=== PATIENT | female | born 1990 | race Caucasian/White ===

== ENCOUNTER 2020-01-23 10:31 | Outpatient (RCR) | payer OTHER ==
[~2020-01-23] VITALS: Ht 160 cm; Wt 61.0 kg
[~2020-01-23 10:31] MED LIST: ACET325T38 PO; ACHD5005 PO; ARIP10TA2 PO; BUPR-168 GT; CLON0.5T3 PO; DCS100C PO; DOCU100C37 PO; DOXY1TAB3 PO; FLUO10CA29 PO; FLUO20CA42 PO; FRS325T PO; HYDR1TAB75 PO; IBP800T PO; IBUP-1780 PO; NAPR-243 PO; OXYC-465 PO; PREN-53 PO; PREN1TAB39 PO; PSEU120T16 PO; Throat Lozenges MT
[2020-01-23] MEDS ORDERED: LISI2.5T PO (11:33)
[2020-01-23] MEDS ORDERED: LISI1TAB29 PO (11:37)
[2020-01-23] MEDS ORDERED: EREN70AU2 SQ (11:37)
[2020-01-24] MEDS ORDERED: OXYC1TAB87 PO (12:55)
[2020-01-24] MEDS ORDERED: IBUP-1780 PO (12:55)
[2020-01-24] MEDS ORDERED: ONDA8TAB13 PO (12:55)
== END 2020-01-23 11:49 | disposition home or self-care (01) ==
LOC: PREOP 10:31
PROVIDERS: ATTEND Obstetrics & Gynecology
DX: Z01.818 Encounter for other preprocedural examination (principal)

== ENCOUNTER 2020-02-01 14:09 | Emergency (ER) | payer OTHER ==
[~2020-02-01] VITALS: Ht 167 cm; Wt 74.0 kg
[~2020-02-01 14:09] MED LIST changes: +EREN70AU2 SQ; +LISI1TAB29 PO; +LISI2.5T PO; +ONDA8TAB13 PO; +OXYC1TAB87 PO
[2020-02-01] MEDS ORDERED: NS IV 1000 ML 1,000 ML IV STA (14:14)
[2020-02-01] MEDS ORDERED: PROMETHAZINE INJ 25 MG/ML (PHENERGAN) AMP IVP STA (14:14)
[2020-02-01] MEDS ORDERED: KETOROLAC 30 MG/ML VIAL IVP STA (14:14)
--- NOTE | 2020-02-01 14:14 | ED Headache ---
General Source: patient History of Present Illness Date Seen by Provider: Feb 01, 2020 Time Seen by Provider: 14:14 Initial Comments 29-year-old female brought in with "altered mental status" patient has a history of seizures and migraines. Patient will look at you and shake her head yes or no important that she will not speak. Patient will shake her head that this is similar to her previous migraines. Patient was at her [employer] for a postop lap appendectomy. She drove here from [facility]. They report that she go t a headache in route when she got to the office states she didn't feel good one and vomited and is had altered mental status, decreased responsiveness since patient with limited history of present illness based on only shake her head yes or no and not verbalizing just. Allergies and Home Medications Allergies Coded Allergies: bupropion (Verified Allergy, Severe, RASH/ANAPHYLAXIS, 01/23/20) metoclopramide (Verified Allergy, Intermediate, BECAME VIOLENT, 01/23/20) Home Medications Erenumab-Aooe 140 Mg/1 Ml Auto.injct, 140 MG SQ MONTHLY, (Reported) Ibuprofen 800 Mg Tablet, 800 MG PO Q6H PRN for PAIN Prescribed by: ARELI ALDANA on 01/24/20 1255 Lisinopril/Hydrochlorothiazide 1 Each Tablet, 1 EACH PO DAILY, (Reported) Ondansetron 8 Mg Tab.rapdis, 8 MG PO Q6H Prescribed by: ARELI ALDANA on 01/24/20 1255 Oxycodone HCl/Acetaminophen 1 Each Tablet, 1 TAB PO Q4H Prescribed by: ARELI ALDANA on 01/24/20 1255 Patient Home Medication List Home Medication List Reviewed: Yes Review of Systems Review of Systems Constitutional: No chills, No fever; other (Limited review of systems since patient nonverbal) Gastrointestinal: abdominal pain Psychiatric/Neurological: Headache Past Umkjuwl-Nriryu-Mkldny Hx Patient Social History Type Used: Cigarettes, Electronic/Vapor Former Smoker, Quit: January 22, 2018 2nd Hand Smoke Exposure: Yes Recent Hopitalizations: No Immunizations Up To Date Tetanus Booster (TDap): Unknown Date of Influenza Vaccine: Jun 05, 2019 Seasonal Allergies Seasonal Allergies: Yes (TAKES SHOTS IN THE FALL) Past Medical History Surgeries: Yes (STENT FOR KIDNEY STONES X4, WISDOM TEETH, CYST FROM WRIST, BREAST IMPLANTS) Hysterectomy Respiratory: No Currently Using CPAP: No Currently Using BIPAP: No Cardiac: Yes Hypertension Neurological: Yes (2007-SEIZURE "FROM [facility]") Headaches /Migraines Reproductive Disorders: Yes (UTERINE PROLAPSE) Female Reproductive Disorders: Endometriosis, Ovarian Cyst Sexually Transmitted Disease: No HIV/AIDS: No Genitourinary: Yes Kidney Stones Gastrointestinal: No Musculoskeletal: Yes Arthritis, Fibromyalgia, Chronic Back Pain Endocrine: No (GESTATIONAL) HEENT: No Loss of Vision: Denies Hearing Impairment: Denies Cancer: No Psychosocial: No (HISTORY OF) Anxiety, Depression Integumentary: No Blood Disorders: No Adverse Reaction/Blood Tranf: No (N/A) Physical Exam Vital Signs Vital Signs - First Documented 02/01/20 14:15 Temp 36.3 Pulse 54 Resp 16 B/P (MAP) 150/85 (106) Pulse Ox 100 O2 Delivery Room Air Capillary Refill : Height, Weight, BMI Height: 5'3.00" Weight: 165lbs. oz. [id number]; 23.82 BMI Method:Stated General Appearance: other (confused/lethargic) HEENT: PERRL/EOMI Neck: supple Cardiovascular: normal peripheral pulses Respiratory: chest non-tender, lungs clear Gastrointestinal: non tender, soft Psychiatric: disoriented x 3, lethargic Progress/Results/Core Measures Results/Orders Lab Results Laboratory Tests Test 02/01/20 14:15 02/01/20 14:34 02/01/20 15:19 Range/Units White Blood Count 10.5 4.3-11.0 10^3/uL Red Blood Count 4.30 L 4.35-5.85 10^6/uL Hemoglobin 12.8 11.5-16.0 G/DL Hematocrit 39 35-52 % Mean Corpuscular Volume 90 80-99 FL Mean Corpuscular Hemoglobin 30 25-34 PG Mean Corpuscular Hemoglobin Concent 33 32-36 G/DL Red Cell Distribution Width 12.9 10.0-14.5 % Platelet Count 511 H 130-400 10^3/uL Mean Platelet Volume 8.9 7.4-10.4 FL Neutrophils (%) (Auto) 64 42-75 % Lymphocytes (%) (Auto) 24 12-44 % Monocytes (%) (Auto) 9 0-12 % Eosinophils (%) (Auto) 3 0-10 % Basophils (%) (Auto) 0 0-10 % Neutrophils # (Auto) 6.8 1.8-7.8 X 10^3 Lymphocytes # (Auto) 2.5 1.0-4.0 X 10^3 Monocytes # (Auto) 0.9 0.0-1.0 X 10^3 Eosinophils # (Auto) 0.3 0.0-0.3 10^3/uL Basophils # (Auto) 0.0 0.0-0.1 10^3/uL Sodium Level 139 135-145 MMOL/L Potassium Level 3.1 L 3.6-5.0 MMOL/L Chloride Level 105 98-107 MMOL/L Carbon Dioxide Level 20 L 21-32 MMOL/L Anion Gap 14 5-14 MMOL/L Blood Urea Nitrogen 11 7-18 MG/DL Creatinine 0.78 0.60-1.30 MG/DL Estimat Glomerular Filtration Rate > 60 BUN/Creatinine Ratio 14 Glucose Level 122 H 70-105 MG/DL Calcium Level 9.4 8.5-10.1 MG/DL Corrected Calcium 8.5-10.1 MG/DL Total Bilirubin 0.9 0.1-1.0 MG/DL Aspartate Amino Transf (AST/SGOT) 25 5-34 U/L Alanine Aminotransferase (ALT/SGPT) 38 0-55 U/L Alkaline Phosphatase 70 40-136 U/L C-Reactive Protein High Sensitivity 1.51 H 0.00-0.50 MG/DL Total Protein 7.9 6.4-8.2 GM/DL Albumin 4.7 H 3.2-4.5 GM/DL Lipase 33 8-78 U/L Lactic Acid Level 1.54 0.50-2.00 MMOL/L Urine Color YELLOW Urine Clarity CLEAR Urine pH 7.0 5-9 Urine Specific Caroline 1.015 L 1.016-1.022 Urine Protein NEGATIVE NEGATIVE Urine Glucose (UA) NEGATIVE NEGATIVE Urine Ketones NEGATIVE NEGATIVE Urine Nitrite NEGATIVE NEGATIVE Urine Bilirubin NEGATIVE NEGATIVE Urine Urobilinogen 0.2 < = 1.0 MG/DL Urine Leukocyte Esterase NEGATIVE NEGATIVE Urine RBC (Auto) NEGATIVE NEGATIVE Urine RBC RARE /HPF Urine WBC 0-2 /HPF Urine Squamous Epithelial Cells 2-5 /HPF Urine Crystals NONE /LPF Urine Bacteria TRACE /HPF Urine Casts NONE /LPF Urine Mucus NEGATIVE /LPF Urine Culture Indicated NO Urine Opiates Screen NEGATIVE NEGATIVE Urine Oxycodone Screen NEGATIVE NEGATIVE Urine Methadone Screen NEGATIVE NEGATIVE Urine Propoxyphene Screen NEGATIVE NEGATIVE Urine Barbiturates Screen NEGATIVE NEGATIVE Ur Tricyclic Antidepressants Screen NEGATIVE NEGATIVE Urine Phencyclidine Screen NEGATIVE NEGATIVE Urine Amphetamines Screen NEGATIVE NEGATIVE Urine Methamphetamines Screen NEGATIVE NEGATIVE Urine Benzodiazepines Screen NEGATIVE NEGATIVE Urine Cocaine Screen NEGATIVE NEGATIVE Urine Cannabinoids Screen NEGATIVE NEGATIVE My Orders Orders - SUAZO,PETER L DO Ketorolac Injection (Toradol Injection) (02/01/20 14:14) Promethazine Injection (Phenergan Injec (02/01/20 14:14) Dexamethasone Injection (Decadron Inject (02/01/20 14:15) Ns Iv 1000 Ml (Sodium Chloride 0.9%) (02/01/20 14:14) Ed Iv/Invasive Line Start (02/01/20 14:14) Diphenhydramine Injection (Benadryl Inje (02/01/20 14:15) Cbc With Automated Diff (02/01/20 14:17) Comprehensive Metabolic Panel (02/01/20 14:17) Hs C Reactive Protein (02/01/20 14:17) Drug Screen Stat (Urine) (02/01/20 14:17) Lactic Acid Analyzer (02/01/20 14:17) Lipase (02/01/20 14:17) Ua Culture If Indicated (02/01/20 14:17) Ct Head Wo-R/O Stroke (02/01/20 14:18) Medications Given in ED Current Medications Medications Dose Ordered Sig/Yogesh Route Start Time Stop Time Status Last Admin Dose Admin Dexamethasone Sodium Phosphate 10 mg ONCE ONCE IV 02/01/20 14:15 02/01/20 14:17 DC 02/01/20 14:36 10 MG Diphenhydramine HCl 25 mg ONCE ONCE IVP 02/01/20 14:15 02/01/20 14:18 DC 02/01/20 14:36 25 MG Vital Signs/I&O 02/01/20 02/01/20 02/01/20 14:15 15:48 15:48 Temp 36.3 Pulse 54 58 58 Resp 16 16 16 B/P (MAP) 150/85 (106) 138/87 138/87 (104) Pulse Ox 100 99 99 O2 Delivery Room Air Room Air Room Air Progress Progress Note : Time: 16:10 Progress Note Patient's symptoms significantly improved with treatment. Patient is now actively talking and ambulating without. She reports that she frequently has migraines that cause her to have and off and similar response. Patient is getting closer back to her baseline is ready to be discharged home. Diagnostic Imaging Diagonstic Imaging: CT Plain Films/CT/US/NM/MRI: head Comments [place], [place] NAME: [facility] REC#: [id number] PT STATUS: REG ER : 1990 PHYSICIAN: PETER SUAZO DO ADMIT DATE: 02/01/20/ER Draft Date of Exam:02/01/20 CT HEAD WO-R/O STROKE PROCEDURE: CT head wo r/o stroke. TECHNIQUE: Multiple contiguous axial images were obtained through the brain without the use of intravenous contrast. Auto Exposure Controls were utilized during the CT exam to meet ALARA standards for radiation dose reduction. INDICATION: Altered mental status with lethargy, history of migraines. Patient is one week post abdominal surgery. COMPARISON: No priors. There is no intracerebral hemorrhage. There is no hydrocephalus. No edema, mass, or mass effect. The basilar cisterns are patent and there is no sulcal effacement. There were no findings suggestive of an elevation of the intracranial pressures. No mass or mass effect. There are no abnormal extra-axial fluid collections. The mastoid air cells and middle ear cavities appeared clear. The orbits and paranasal sinuses as well as the calvarium are nonacute. IMPRESSION: No hemorrhage, edema, or other acute abnormalities. Unremarkable CT head. Departure Impression Primary Impression: Migraine Qualified Codes: G43.111 - Migraine with aura, intractable, with status migrainosus Disposition: 01 HOME, SELF-CARE Condition: Stable Departure-Patient Inst. Referrals: NO,LOCAL PHYSICIAN (PCP) Primary Care Physician Patient Instructions: Migraines (DC), Migraines in Adults Add. Discharge Instructions: Follow-up with your primary care provider and neurologist for further migraine management PETER SUAZO DO Feb 01, 2020 14:14
[2020-02-01] MEDS ORDERED: diphenhydrAMINE 50 MG/ML INJ (BENADRYL) IVP ONE (14:15)
[2020-02-01] MEDS ORDERED: DEXAMETHASONE 10 MG/ML (DECADRON) 1 ML VIAL IV ONE (14:15)
[2020-02-01 14:22] LABS: BASOPHILS % (AUTO) 0 % (0-10); EOSINOPHILS # (AUTO) 0.3 10^3/uL (0.0-0.3); EOSINOPHILS % (AUTO) 3 % (0-10); HEMATOCRIT 39 % (35-52); HEMOGLOBIN 12.8 G/DL (11.5-16.0); LYMPHOCYTES # (AUTO) 2.5 X 10^3 (1.0-4.0); LYMPHOCYTES % (AUTO) 24 % (12-44); MEAN CORPUSCULAR HEMOGLOBIN 30 PG (25-34); MEAN CORPUSCULAR HGB CONC 33 G/DL (32-36); MEAN CORPUSCULAR VOLUME 90 FL (80-99); MEAN PLATELET VOLUME 8.9 FL (7.4-10.4); MONOCYTES # (AUTO) 0.9 X 10^3 (0.0-1.0); MONOCYTES % (AUTO) 9 % (0-12); NEUTROPHILS # (AUTO) 6.8 X 10^3 (1.8-7.8); NEUTROPHILS % (AUTO) 64 % (42-75); PLATELET COUNT 511 10^3/uL (130-400); RED CELL DISTRIBUTION WIDTH 12.9 % (10.0-14.5); WHITE BLOOD COUNT 10.5 10^3/uL (4.3-11.0)
[2020-02-01 14:31] LABS: ALBUMIN 4.7 GM/DL (3.2-4.5); CHLORIDE 105 MMOL/L (98-107); POTASSIUM 3.1 MMOL/L (3.6-5.0); SODIUM 139 MMOL/L (135-145)
[2020-02-01 14:33] LABS: CALCIUM 9.4 MG/DL (8.5-10.1)
[2020-02-01 14:34] LABS: GLUCOSE 122 MG/DL (70-105); TOTAL PROTEIN 7.9 GM/DL (6.4-8.2)
[2020-02-01 14:35] LABS: CARBON DIOXIDE 20 MMOL/L (21-32)
[2020-02-01 14:36] LABS: BILIRUBIN,TOTAL 0.9 MG/DL (0.1-1.0)
[2020-02-01 14:37] LABS: ALKALINE PHOSPHATASE 70 U/L (40-136); CREATININE SERUM 0.78 MG/DL (0.60-1.30); GFR ESTIMATED > 60
[2020-02-01 14:39] LABS: BUN/CREATININE RATIO 14
[2020-02-01 14:40] LABS: ALANINE AMINOTRANSFERASE 38 U/L (0-55)
[2020-02-01 14:41] LABS: LIPASE 33 U/L (8-78)
[2020-02-01 15:27] LABS: BILIRUBIN,URINE NEGATIVE (NEGATIVE); CLARITY,URINE CLEAR; COLOR,URINE YELLOW; GLUCOSE, URINE (UA) NEGATIVE (NEGATIVE); KETONES,URINE NEGATIVE (NEGATIVE); LEUKOCYTE ESTERASE ,URINE NEGATIVE (NEGATIVE); NITRITE,URINE NEGATIVE (NEGATIVE); PROTEIN,URINE NEGATIVE (NEGATIVE)
--- NOTE | 2020-02-01 15:32 | Diagnostic Imaging Report ---
PROCEDURE: CT head wo r/o stroke. TECHNIQUE: Multiple contiguous axial images were obtained through the brain without the use of intravenous contrast. Auto Exposure Controls were utilized during the CT exam to meet ALARA standards for radiation dose reduction. INDICATION: Altered mental status with lethargy, history of migraines. Patient is one week post abdominal surgery. COMPARISON: No priors. There is no intracerebral hemorrhage. There is no hydrocephalus. No edema, mass, or mass effect. The basilar cisterns are patent and there is no sulcal effacement. There were no findings suggestive of an elevation of the intracranial pressures. No mass or mass effect. There are no abnormal extra-axial fluid collections. The mastoid air cells and middle ear cavities appeared clear. The orbits and paranasal sinuses as well as the calvarium are nonacute. IMPRESSION: No hemorrhage, edema, or other acute abnormalities. Unremarkable CT head. Dictated by: Dictated on workstation # [id number]
[2020-02-01 15:48] VITALS: BP 138/87
[2020-02-01 15:52] LABS: BACTERIA,URINE TRACE /HPF; RBC,URINE RARE /HPF; WBC,URINE 0-2 /HPF
[2020-02-01 16:00] LABS: AMPHETAMINE SCREEN, URINE NEGATIVE (NEGATIVE); BARBITURATE SCREEN URINE NEGATIVE (NEGATIVE); BENZODIAZEPINES SCREEN URINE NEGATIVE (NEGATIVE); CANNABINOID SCREEN, URINE NEGATIVE (NEGATIVE); COCAINE SCREEN URINE NEGATIVE (NEGATIVE); METHADONE STAT NEGATIVE (NEGATIVE); METHAMPHETAMINE SCREEN URINE S NEGATIVE (NEGATIVE); OPIATE SCREEN URINE NEGATIVE (NEGATIVE); OXYCODONE STAT NEGATIVE (NEGATIVE); PROPOXYPHENE STAT NEGATIVE (NEGATIVE); TRICYCLIC ANTIDEPRESSANTS SCRE NEGATIVE (NEGATIVE)
[2020-02-01 16:09] VITALS: BP 133/88
== END 2020-02-01 16:17 | disposition home or self-care (01) ==
LOC: EDUNIT# 14:09 → ER 14:13
DX: G43.909 Migraine, unspecified, not intractable, without status migrainosus (principal); I10 Essential (primary) hypertension; Z88.8 Allergy status to other drugs, medicaments and biological substances; Z87.892 Personal history of anaphylaxis; Z77.22 Contact with and (suspected) exposure to environmental tobacco smoke (acute) (chronic)
CPT/HCPCS: 36415; 70450; 80053; 80306; 81000; 83605; 83690; 84703; 85025; 86141